=== PATIENT | female | born 1965 | race Caucasian/White ===

== ENCOUNTER 2019-08-19 10:11 | Observation (INO) ==
[~2019-08-19 10:11] MED LIST: Total Joint Mixture (50 ml) IR ONE
[2019-08-19] MEDS ORDERED: Albuterol 2.5 MG/3 ML NEBULIZER IH PRN (10:37)
[2019-08-19] MEDS ORDERED: CeFAZolin Syr 2,000MG/20 ML 2,000 MG/20 ML SYRINGE IVPB ONE (10:37)
[2019-08-19] MEDS ORDERED: Ringers Solution, Lactated 1,000 ML IVC SCH ×2 (10:45→16:31)
[2019-08-19] MEDS ORDERED: Celecoxib 200 MG CAPSULE PO ONE (11:31)
[2019-08-19] MEDS ORDERED: *HR* OxyCODONE ER (12 HR) 10 MG TABLET PO ONE (11:32)
[2019-08-19] MEDS ORDERED: Ondansetron 4 MG/2 ML VIAL IVP ONE (11:34)
[2019-08-19] MEDS ORDERED: *HR* HYDROmorphone (PF) 1 MG/ML SYRINGE IVP PRN (11:34)
[2019-08-19] MEDS ORDERED: *HR* FentaNYL (PF) 100 MCG/2 ML VIAL ONE (11:50)
[2019-08-19] MEDS ORDERED: *HR* Midazolam HCl 2 MG/2 ML VIAL ONE (11:51)
[2019-08-19] MEDS ORDERED: *HR* Propofol 200 MG/20 ML VIAL IVP ONE (11:52)
[2019-08-19] MEDS ORDERED: Lidocaine -MPF 2% 2 ML VIAL ONE (11:53)
[2019-08-19] MEDS ORDERED: *HR* Succinylcholine 200 MG/10 ML VIAL IVP ONE (11:53)
[2019-08-19] MEDS ORDERED: Dexamethasone 4 MG/ML VIAL ONE (11:55)
[2019-08-19] MEDS ORDERED: Ondansetron 4 MG/2 ML VIAL ONE (11:55)
[2019-08-19] MEDS ORDERED: Lidocaine -MPF 4% 5 ML AMPUL ONE (11:58)
[2019-08-19] MEDS ORDERED: Tranexamic Acid 1,000 MG/10 ML VIAL ONE (12:12)
[2019-08-19] MEDS ORDERED: ROPIVACAINE/PF/NS 0.25% 1 EACH SYRINGE INTRAART ONE (12:15)
[2019-08-19] MEDS ORDERED: Ethanol\\Acetic Acid\\Na Ace\\Ben 1,000 ML IRRIG.SOLN IR ONE (12:55)
[2019-08-19] MEDS ORDERED: EPHEDrine 50 MG/ML VIAL ONE (13:23)
[2019-08-19] MEDS ORDERED: *HR* PHENYLEPHRINE 1,000 MCG/10 ML SYRINGE IVP ONE (13:23)
[2019-08-19 15:28] LABS: Hematocrit 40.1 % (35.3-44.9); Hemoglobin 13.2 g/dL (11.5-15.4)
[2019-08-19] MEDS ORDERED: SUMAtriptan succinate 50 MG TABLET PO PRN (16:31)
[2019-08-19] MEDS ORDERED: Sennosides 8.6 MG TABLET PO PRN (16:31)
[2019-08-19] MEDS ORDERED: HYDROcodone BIT/Homatropine 5 MG TABLET PO PRN (16:31)
[2019-08-19] MEDS ORDERED: Ondansetron 4 MG/2 ML VIAL IVP PRN (16:31)
[2019-08-19] MEDS ORDERED: MOM Conc 10 ML UD.LIQ PO PRN (16:31)
[2019-08-19] MEDS ORDERED: KETOTIFEN FUMARATE BOTH EYES PRN (16:31)
[2019-08-19] MEDS ORDERED: Temazepam 15 MG CAPSULE PO PRN (16:31)
[2019-08-19] MEDS ORDERED: *HR* Promethazine 25 MG/ML VIAL IVP PRN (16:31)
[2019-08-19] MEDS ORDERED: traMADol 50 MG TABLET PO PRN (16:31)
[2019-08-19] MEDS ORDERED: Naloxone 0.4 MG/ML INJ IVP PRN (16:31)
[2019-08-19] MEDS: *HR* OxyCODONE Immed Rel 5 MG TABLET PO PRN (17:37)
[2019-08-19] MEDS: Ascorbic Acid 500 MG TABLET PO SCH (17:38)
[2019-08-19] MEDS: Lactobacillus 1 EACH CAP.SPRINK PO SCH (20:30)
[2019-08-19] MEDS: Gabapentin 400 MG CAPSULE PO SCH (20:30)
[2019-08-20 05:02] LABS: Basophils % 0.1 %; Hemoglobin 11.7 g/dL (11.5-15.4); Immature Granulocytes % 0.7 % (0-4); Lymphocytes # 0.9 K/mcL (0.6-4.6); Lymphocytes % 8.7 %; Mean Corpuscular HGB Conc 33.4 g/dL (31.6-35.5); Mean Corpuscular Hemoglobin 31.1 pg (28.0-33.3); Mean Corpuscular Volume 93.1 fL (83.0-100.0); Mean Platelet Volume 9.6 fL (9.4-12.4); Monocytes # 0.4 K/mcL (0.0-1.3); Monocytes % 3.9 %; Neutrophils # 8.9 K/mcL (1.6-8.9); Platelet Count 198 K/mcL (140-400); Red Blood Count 3.76 M/mcL (3.82-4.97); Red Cell Distribution Width 13.2 % (11.5-14.5); Segmented Neutrophils % 86.6 %; White Blood Count 10.3 K/mcL (4.3-11.1)
[2019-08-20 05:18] LABS: BUN/Creatinine Ratio 12 (6-26); Blood Urea Nitrogen 12 mg/dL (6-20); Calcium 8.8 mg/dL (8.6-10.3); Carbon Dioxide 24 mEq/L (23-29); Chloride 104 mEq/L (98-107); Glucose 170 mg/dL (70-105); Osmolality,Calculated 280 (280-300); Potassium 4.5 mEq/L (3.5-5.1); Sodium 133 mEq/L (136-145); eGFR For African Americans > 60 (> 60); eGFR For Non-African Americans 57 (> 60)
[2019-08-20] MEDS: Ascorbic Acid 500 MG TABLET PO SCH ×2 (09:05→17:03)
[2019-08-20] MEDS: Cholecalciferol (D-3) 1,000 UNIT (25MCG) TABLET PO SCH (09:05)
[2019-08-20] MEDS: Gabapentin 400 MG CAPSULE PO SCH ×2 (09:05→21:02)
[2019-08-20] MEDS: Loratadine 10 MG TABLET PO SCH (09:05)
[2019-08-20] MEDS: BuPROPion XL (24 HR) 150 MG TABLET PO SCH (09:05)
[2019-08-20] MEDS: Aspirin Enteric Coated 81 MG Tablet PO SCH (09:06)
[2019-08-20] MEDS: Primidone 50 MG TABLET PO SCH (09:06)
[2019-08-20] MEDS: Multivit/Ca/Min/Fe/FA 1 TAB TABLET PO SCH (09:06)
[2019-08-20] MEDS: *HR* OxyCODONE Immed Rel 5 MG TABLET PO PRN ×3 (09:07→21:02)
[2019-08-20] MEDS: Lactobacillus 1 EACH CAP.SPRINK PO SCH ×2 (09:07→21:02)
[2019-08-20] MEDS: Folic Acid 1 MG TABLET PO SCH ×2 (09:07→09:08)
[2019-08-20] MEDS: Cyanocobalamin (B-12) 1,000 MCG TABLET PO SCH (09:09)
[2019-08-20] MEDS: Tiotropium 18 MCG inhalation IH SCH (10:33)
[2019-08-20] MEDS: *HR* Enoxaparin 30 MG/0.3 ML SYRINGE SQ SCH ×2 (13:06→17:03)
[2019-08-21] MEDS: *HR* OxyCODONE Immed Rel 5 MG TABLET PO PRN ×2 (04:29→10:51)
[2019-08-21 05:43] LABS: Basophils % 0.3 %; Eosinophils # 0.1 K/mcL (0.0-0.6); Eosinophils % 0.6 %; Hematocrit 33.1 % (35.3-44.9); Immature Granulocytes % 0.3 % (0-4); Lymphocytes # 2.9 K/mcL (0.6-4.6); Lymphocytes % 28.9 %; Mean Corpuscular HGB Conc 33.2 g/dL (31.6-35.5); Mean Corpuscular Hemoglobin 31.1 pg (28.0-33.3); Mean Corpuscular Volume 93.5 fL (83.0-100.0); Mean Platelet Volume 9.6 fL (9.4-12.4); Monocytes # 0.9 K/mcL (0.0-1.3); Monocytes % 8.8 %; Neutrophils # 6.2 K/mcL (1.6-8.9); Platelet Count 193 K/mcL (140-400); Red Blood Count 3.54 M/mcL (3.82-4.97); Red Cell Distribution Width 13.6 % (11.5-14.5); Segmented Neutrophils % 61.1 %; White Blood Count 10.1 K/mcL (4.3-11.1)
[2019-08-21] MEDS: *HR* Enoxaparin 30 MG/0.3 ML SYRINGE SQ SCH (06:12)
[2019-08-21 06:27] LABS: Calcium 8.7 mg/dL (8.6-10.3)
[2019-08-21] MEDS: Tiotropium 18 MCG inhalation IH SCH (08:09)
[2019-08-21] MEDS: Primidone 50 MG TABLET PO SCH (08:11)
[2019-08-21] MEDS: Multivit/Ca/Min/Fe/FA 1 TAB TABLET PO SCH (08:11)
[2019-08-21] MEDS: Cholecalciferol (D-3) 1,000 UNIT (25MCG) TABLET PO SCH (08:11)
[2019-08-21] MEDS: Aspirin Enteric Coated 81 MG Tablet PO SCH (08:11)
[2019-08-21] MEDS: Lactobacillus 1 EACH CAP.SPRINK PO SCH (08:11)
[2019-08-21] MEDS: Ascorbic Acid 500 MG TABLET PO SCH (08:11)
[2019-08-21] MEDS: Folic Acid 1 MG TABLET PO SCH (08:11)
[2019-08-21] MEDS: BuPROPion XL (24 HR) 150 MG TABLET PO SCH (08:11)
[2019-08-21] MEDS: Loratadine 10 MG TABLET PO SCH (08:11)
[2019-08-21] MEDS: Gabapentin 400 MG CAPSULE PO SCH (08:11)
[2019-08-21] MEDS: Cyanocobalamin (B-12) 1,000 MCG TABLET PO SCH (08:12)
[2019-08-21 10:54] VITALS: BP 110/68
[2019-08-21] MEDS ORDERED: FLU Vac QV 19-20 (6Month+)/PF 0.5 ML SYRINGE IM ONE (12:25)
== END 2019-08-21 14:10 ==
LOC: SAMDAY 10:11 → 3NENU 10:11
PROVIDERS: ADMIT Orthopaedic Surgery; ATTEND Orthopaedic Surgery